=== PATIENT | female | born 1930 | race Native Hawaiian/Other Pacific Islander ===

== ENCOUNTER 2017-12-27 13:01 | Outpatient (CLI) | payer OTHER ==
[~2017-12-27 13:01] MED LIST: ASA LOW DOSE81 MG PO; LEVO0.0218 PO; METFORMIN ER1000 MG PO
== END 2017-12-27 23:04 | disposition home or self-care (01) ==
LOC: RAD 13:01
DX: Z13.820 Encounter for screening for osteoporosis (principal); Z78.0 Asymptomatic menopausal state

== ENCOUNTER 2021-04-20 08:02 | Outpatient (CLI) | payer OTHER | END 2021-04-20 20:55 | disposition home or self-care (01) | LOC: US 08:02 | PROVIDERS: ATTEND Nurse Practitioner Family | DX: R31.9 Hematuria, unspecified (principal) ==